=== PATIENT | male | born 1955 | race Caucasian/White ===

== ENCOUNTER → 2022-06-30 | Outpatient (CLI) | payer MEDICARE, OTHER ==
--- NOTE | 2022-07-01 07:57 | MR ---
EXAMINATION TYPE: MR Prostate wo/w con DATE OF EXAM: 06/30/2022 COMPARISON: CT urogram May 28, 2021 INDICATION: ELEVATED PSA LEVELS PSA: 4.60 ng/ml on May 12, 2022 increased from 2.5 on March 04, 2021 Recent Biopsy and Date: None TECHNIQUE: Examination was performed using a 3T MRI without an endorectal coil. Multiparametric imaging was perf ormed with T2 mutliplanar sequences, axial diffusion weighted imaging and dynamic contrast enhanced i maging, utilizing 8 mL intravenous Gadavist gadolinium contrast. FINDINGS: PROSTATE VOLUME: 5.1 cm SI x 4.0 cm AP x 5.2 cm LR Vol= 55.54 cc PSA DENSITY: 0.08 ng/ml/cc Enlarged prostate consistent with BPH. Peripheral zone shows some areas of diminished signal on ADC m apping particularly left apical mid zone level without areas of increased signal on diffusion-weighte d imaging. Central transitional zone shows no suspicious areas of irregular or focal significant dimi nished T2 signal. Overall heterogeneity is present. No restricted diffusion is seen. Seminal vesicles appear symmetric and felt within normal limits. Prostate capsule is maintained. Urin susan bladder shows adequate distention with minimal wall thickening. No significant trabeculation. No free fluid in the pelvis. No suspicious bowel dilatation. Mild fecal prominence in the cecum. Visuali zed osseous structures are intact. IMPRESSION: Enlarged prostate consistent with BPH. A focus of clinically significant cancer is not identified. Highest Assessment Category: 2 MRI Stage: T0 N0 M0 based on review of pelvic images. False negative rates for MRI range from 5-20% depending on risk profile. Assessment Categories: 1 ? Very low (clinically significant cancer is highly unlikely to be present) 2 ? Low (clinically significant cancer is unlikely to be present) 3 ? Intermediate (the presence of clinically significant cancer is equivocal) 4 ? High (clinically significant cancer is likely to be present) 5 ? Very high (clinically significant cancer is highly likely to be present)
== END | disposition home or self-care (01) ==
LOC: RADMRIMAIN 07:18
PROVIDERS: ATTEND Urology
DX: R97.20 Elevated prostate specific antigen [PSA] (principal)
CPT/HCPCS: 72197; A9585

== ENCOUNTER → 2024-01-08 | Outpatient (CLI) | payer MEDICARE, OTHER ==
--- NOTE | 2024-01-14 22:22 | PE ---
EXAMINATION TYPE: PET CT fusion skull to thigh DATE OF EXAM: 01/08/2024 COMPARISON: 05/28/2022 Prior PET/CT: None HISTORY: Prostate cancer TECHNIQUE: Following the intravenous administration of 4.95 mCi of gallium 28, whole body images are performed from the skull base to the midthigh. Images are reviewed on the computer in the coronal, axial, and sagittal planes. Reconstructed rotating images are created on independent workstation and reviewed on the computer. A localization and attenuation correction CT is performed in conjunction with the PET scan. DLP: 453.98 mGycm SCAN: Initial FINDINGS: NECK: There is normal uptake within the salivary glands. THORAX: No abnormal uptake ABDOMEN: No abnormal uptake PELVIS: Small amount of uptake is in the posterior lateral right pelvic floor may be along the latera l margin of the prostate. As the 11.54 OSSEOUS STRUCTURES: No abnormal uptake LOCALIZATION CT: Nonobstructing renal stone right kidney. Lobular cyst area anterior left kidney this area is nonenhancing with radiotracer. Large cyst inferior right kidney. COMPARISON: Renal cysts are stable IMPRESSION: 1. Small amount of radiotracer in the posterior lateral right inferior prostate likely the primary. 2. No suspicious changes to suggest metastatic disease.
== END | disposition home or self-care (01) ==
LOC: RADPETMAIN 09:37
PROVIDERS: ATTEND Urology
DX: C61 Malignant neoplasm of prostate (principal)
CPT/HCPCS: 78815; A9596

== ENCOUNTER → 2024-02-03 | Outpatient (CLI) | payer MEDICARE, OTHER ==
--- NOTE | 2024-02-03 16:32 | MR ---
EXAMINATION TYPE: MR Prostate wo/w con DATE OF EXAM: 02/03/2024 7:08 AM COMPARISON: None. CLINICAL INDICATION:Male, 68 years old with history of C61 MALIGNANT NEOPLASM OF PROSTATE; Elevated P SA, malignant neoplasm of prostate TECHNIQUE: Multi-planar, multi-sequence imaging of the pelvis is performed prior to and following the uncomplicated administration of bolus intravenous gadolinium. CONTRAST: 8 Gadavist Interpretive Criteria: PI-RADS v2.1 SERUM PSA: PSA=11.68 SURGICAL PATHOLOGY: No data available. FINDINGS: Prostatic dimensions: 5.5 x 5.5 x 4.2 cm. Ellipsoid Volume:66.52 (PSA density=0.18 ng/mL/mL) CENTRAL GLAND (Central and Transition Zones/CZ+TZ): Multiple bilateral, heterogenous appearing hypertrophic stromal nodules, without suspicious lesion. M edian lobe hypertrophy with protrusion into the base of the bladder. (PI-RADS 2) PERIPHERAL ZONE (PZ): High DWI/low T2 signal right posterior lateral lesion measuring 14 x 11 mm. This does demonstrate art erial enhancement postcontrast imaging. (PI-RADS 4) SEMINAL VESICLES (SV): Symmetric and unremarkable. PERIPROSTATIC TISSUES: Unremarkable. LYMPH NODES: No enlarged pelvic lymph node. REMAINING PELVIS: Bladder wall is within normal limits given distention. No abnormal free or organized intrapelvic fluid collection. No pathologic bowel dilation or mural thickening. Left fat containing inguinal hernia OSSEOUS STRUCTURES: No suspicious osseous abnormality. IMPRESSION: 1. PI-RADS 4 lesion measuring 14 x 11 mm Right posterior peripheral zone mid gland/apex. No evidence for lymphadenopathy or metastatic disease at this time. 2. Moderate BPH, estimated gland volume 66.52 mL. 3. No suspicious osseous lesion. No lymphadenopathy. No evidence of prostate adenocarcinoma involving the periprostatic tissues.
== END | disposition home or self-care (01) ==
LOC: RADMRIMAIN 05:51
PROVIDERS: ATTEND Radiology Radiation Oncology
DX: C61 Malignant neoplasm of prostate (principal); N40.0 Benign prostatic hyperplasia without lower urinary tract symptoms
CPT/HCPCS: 72197; A9585